=== PATIENT | male | born 1985 | race African-American/Black ===

== ENCOUNTER 2025-05-20 06:45 | Emergency (ER) | payer MEDICAID ==
[~2025-05-20] VITALS: Ht 182.9 cm; Wt 82.0 kg
[2025-05-20 07:37] LABS: BASOPHILS % 0.5 % (0.0-2.0); EOSINOPHILS % 2.4 % (0.0-5.0); HEMATOCRIT. 24.4 % (42.0-52.0); HEMOGLOBIN. 7.7 g/dL (14.0-18.0); LYMPHOCYTES % 13.6 % (20.0-50.0); MEAN PLATELET VOLUME 9.1 fl (7.4-10.4); MONOCYTES % 7.0 % (2.0-8.0); NEUTROPHILS % 76.5 % (40.0-76.0); PLATELET 242 x1000/uL (130-400); RED BLOOD CELL COUNT 2.47 mill/uL (4.7-6.1); RED CELL DISTRIBUTION WIDTH 17.2 % (11.6-14.6)
[2025-05-20 07:50] LABS: INR 1.0
[2025-05-20 07:54] LABS: UREA NITROGEN BLOOD 34 mg/dL (9-23)
[2025-05-20 07:55] LABS: ASPARTATE AMINOTRANSFERASE 21 IU/L (<34)
[2025-05-20 07:56] LABS: BILIRUBIN DIRECT 0.3 mg/dL (<=3.0); BILIRUBIN TOTAL 0.7 mg/dL (0.1-1.0); PROTEIN TOTAL 7.5 g/dL (6.0-8.3)
[2025-05-20] MEDS: MORPHINE SULFATE 4 MG/ML INJ (FOR IV/IM USE) IV ONE (08:10)
[2025-05-20 08:16] LABS: CREATININE 8.9 mg/dL (0.6-1.3)
[2025-05-20] MEDS: LABETALOL 5MG/ML 4ML INJ IV ONE (08:21)
[2025-05-20] MEDS: ONDANSETRON HCL 4MG/2ML INJ IV ONE (08:23)
[2025-05-20] MEDS ORDERED: HYDROMORPHONE HCL/PF 2MG/ML INJ IV ONE (10:00)
[2025-05-20] MEDS: SODIUM CHLORIDE 0.9% 1,000 ML IV ONE (10:00)
[2025-05-20] MEDS ORDERED: IOHEXOL-300 100 ML BOTTLE ONE (10:25)
[2025-05-20] MEDS: PIPERACILLIN/TAZO 3.375G/50ML 50 ML IV ONE (10:26)
[2025-05-20] MEDS: HYDROMORPHONE HCL/PF 1MG/ML INJ IV NR (10:27)
[2025-05-20] MEDS: NICARDIPINE 40MG/200ML PREMIX 200 ML IV PRN (11:57)
[2025-05-20 12:13] LABS: BG DEOXYHEMOGLOBIN 7.5 % (0.0-5.0)
[2025-05-20 13:58] VITALS: PULSE 87; RESP 20; O2SAT 100
[2025-05-20] MEDS ORDERED: CALCIUM CHLORIDE 1,000 MG in SODIUM CHLORIDE 0.9% 100 ML IV ONE (14:00)
[2025-05-20] MEDS: NOREPINEPHRINE 8MG/250ML PMX 250 ML IV ONE (14:12)
[2025-05-20] MEDS ORDERED: FENTANYL 2500MCG/250ML PMX 250 ML IV SCH (14:15)
[2025-05-20] MEDS ORDERED: ROCURONIUM BROMIDE 10MG/ML VIAL 5ML IV ONE (14:15)
[2025-05-20] MEDS ORDERED: ETOMIDATE 2MG/ML 10ML VIAL IV ONE (14:15)
[2025-05-20] MEDS: FENTANYL 2500MCG/250ML PMX 250 ML IV PRN (14:47)
[2025-05-20 15:59] VITALS: PULSE 82; RESP 20; O2SAT 97
[2025-05-20 16:00] LABS: TROPONIN I HIGH SENSITIVITY 160 ng/L (3.0-53)
[2025-05-20 16:23] LABS: HEMATOCRIT. 23.5 % (42.0-52.0); HEMOGLOBIN. 7.2 g/dL (14.0-18.0); MEAN PLATELET VOLUME 8.9 fl (7.4-10.4); PLATELET 206 x1000/uL (130-400); RED BLOOD CELL COUNT 2.37 mill/uL (4.7-6.1); RED CELL DISTRIBUTION WIDTH 17.5 % (11.6-14.6)
[2025-05-20 16:28] LABS: INR 1.4
[2025-05-20 16:39] LABS: LYMPHOCYTES % MANUAL 13.0 % (20.0-50.0); MONOCYTES % MANUAL 6.0 % (2.0-8.0); NEUTROPHILS % MANUAL 81.0 % (45.0-75.0); PLATELET ESTIMATE NORMAL
[2025-05-20 16:58] VITALS: O2SAT 94
[2025-05-20] MEDS: PROPOFOL 10MG/ML 100ML 100 ML IV SCH (16:58)
[2025-05-20] MEDS: CALCIUM GLUCONATE 1GM PREMIX 50 ML IV NR (17:23)
[2025-05-20 17:26] LABS: BG BASE EXCESS -11.1 mmol/L (-2.0-3.0); BG CARBOXYHEMOGLOBIN 1.4 % (0.5-1.5); BG DEOXYHEMOGLOBIN 10.6 % (0.0-5.0); BG FRACTION INSPIRED OXYGEN 45; BG HCO3 ACT 16.7 mmol/L (21.0-28.0); BG METHEMOGLOBIN 0.3 % (0.5-1.5); BG OXYGEN SATURATION 89.2 % (94.0-98.0); BG OXYHEMOGLOBIN 87.7 % (94.0-98.0); BG PCO2 47.0 mmHg (35.0-48.0); BG PEEP (cmH2O) 5.0 cmH2O; BG PH 7.168 (7.350-7.450); BG PO2 65.6 mmHg (83.0-108.0); BG SAMPLE SITE RIGHT RADIAL; BG TIDAL VOLUME(mL) 450.0 mL; BG TOTAL HEMOGLOBIN 7.6 g/dL (13.5-17.5); BG VENT MODE VENT - AC; BG VENT RATE 16.0 set
[2025-05-20 17:50] VITALS: PULSE 86; RESP 24; O2SAT 99
[2025-05-20] MEDS: SODIUM BICARBONATE 8.4% 50MEQ/50ML SYR IV ONE (18:01)
[2025-05-20 18:49] VITALS: BP 162/86; PULSE 85; RESP 20; TEMP 33.3; O2SAT 100
== END 2025-05-20 19:11 | disposition short-term general hospital (02) ==
LOC: ER 06:45 → EDBEDREQSVC 12:16 → ER 19:11 → CMPBEDREQ 05-21 03:15
DX: K68.3 Retroperitoneal hematoma (principal); K66.1 Hemoperitoneum; E11.22 Type 2 diabetes mellitus with diabetic chronic kidney disease; F12.90 Cannabis use, unspecified, uncomplicated; I12.0 Hypertensive chronic kidney disease with stage 5 chronic kidney disease or end stage renal disease; N18.6 End stage renal disease; Z99.2 Dependence on renal dialysis; Z79.899 Other long term (current) drug therapy
CPT/HCPCS: 80076; 80048; 82140; 83605; 83690; 83735; 83930; 85025; 85610; 86850; 86900; 86901; 86920; 87040; 84484; 36415; 71045; 74176; 74177; 82805; 82375; 82803; 31500 ×2; 93005; 36556; 96367; 96361; 96365; 96375; 99291; 99292; 86927; 36600; Q9967; Z7610 ×5; J0612; J3490 ×4; J2405; J2543; J2704; J1171; J2270; J7030; 36430; 94002; 94664; A4606; J3010; J7050; P9016; P9017